=== PATIENT | female | born 1990 | race Caucasian/White ===

== ENCOUNTER 2016-07-08 19:23 | Inpatient (IN) | payer OTHER ==
[2016-07-08] MEDS ORDERED: fentaNYL* 50 MCG/ML 2 ML VIAL (100 MCG VIAL) ONE (20:03)
[2016-07-08] MEDS ORDERED: OBEPIDURAL* 250 ML ONE (20:03)
[2016-07-08 20:22] LABS: Hematocrit 38 % (35-47); Hemoglobin 12.7 g/dl (12.0-16.0); Mean Corpuscular HGB Conc 34 g/dl (31-36); Mean Corpuscular Hemoglobin 31 pg (27-31); Mean Corpuscular Volume 91 fL (80-97); Mean Platelet Volume 10 um3 (7.4-10.4); Red Blood Count 4.15 10^6/ul (4.0-5.4); Red Cell Distribution Width 12 % (10.5-15); White Blood Count 12.5 10^3/ul (3.5-10.8)
[2016-07-08] MEDS ORDERED: Phenylephrine IV* 40 MCG/ML 10 ML SYRINGE IV PUSH PRN ×2 (21:04)
[2016-07-08] MEDS ORDERED: Famotidine TAB* 20 MG PO PRN (21:04)
[2016-07-08] MEDS ORDERED: Sodium Citrate/Citric Acid* 15 ML UDC PO PRN (21:04)
[2016-07-08] MEDS ORDERED: OBEPIDURAL* 250 ML EPIDURAL SCH (22:00)
[2016-07-08] MEDS ORDERED: Oxytocin in LR* 20 UNITS/1,000 ML BAG IVPB ONE (23:49)
[2016-07-09] MEDS ORDERED: Witch Hazel PAD* JAR TOPICAL PRN (00:05)
[2016-07-09] MEDS ORDERED: Dibucaine 1% 28.35 GM TUBE PR PRN (00:05)
[2016-07-09] MEDS ORDERED: oxyCODONE/Acetamin 5/325 MG* TAB PO PRN (00:05)
[2016-07-09] MEDS ORDERED: Glycerin ADULT SUPP PR PRN (00:05)
[2016-07-09] MEDS ORDERED: Acetaminophen TAB* 325 MG PO PRN (00:05)
[2016-07-09] MEDS ORDERED: Ibuprofen TAB* 600 MG PO PRN (00:05)
[2016-07-09] MEDS ORDERED: Oxytocin in LR* 20 UNITS/1,000 ML BAG IVPB SCH (01:00)
[2016-07-09] MEDS ORDERED: Sertraline* 100 MG TAB PO SCH (09:00)
[2016-07-09] MEDS: Docusate CAP* 100 MG PO SCH ×4 (10:00→20:33)
[2016-07-09] MEDS: Sertraline* 50 MG TAB PO SCH (10:00)
[2016-07-10 08:37] LABS: Hematocrit 37 % (35-47); Hemoglobin 12.4 g/dl (12.0-16.0); Mean Corpuscular HGB Conc 34 g/dl (31-36); Mean Corpuscular Hemoglobin 31 pg (27-31); Mean Corpuscular Volume 92 fL (80-97); Mean Platelet Volume 10 um3 (7.4-10.4); Red Blood Count 3.96 10^6/ul (4.0-5.4); Red Cell Distribution Width 13 % (10.5-15); White Blood Count 10.9 10^3/ul (3.5-10.8)
[2016-07-10] MEDS ORDERED: Ferrous Gluconate TAB* 324 MG TAB PO SCH (09:00)
[2016-07-10] MEDS: Docusate CAP* 100 MG PO SCH ×3 (09:03→20:38)
[2016-07-10] MEDS: Sertraline* 50 MG TAB PO SCH (09:03)
[2016-07-11 04:59] VITALS: BP 119/73
== END 2016-07-10 20:40 | disposition home or self-care (01) | DRG 775 ==
LOC: MCHOBOUT 19:23 → MCHOB 19:59
PROVIDERS: ADMIT Midwife; ATTEND Midwife
PROC: 10E0XZZ Delivery of Products of Conception, External Approach (ICD-10-PCS; principal; 2016-07-08)
PROC: 0HQ9XZZ Repair Perineum Skin, External Approach (ICD-10-PCS; 2016-07-08)
DX: O60.14X0 Preterm labor third trimester with preterm delivery third trimester, not applicable or unspecified (principal); O99.344 Other mental disorders complicating childbirth; F41.8 Other specified anxiety disorders; O70.0 First degree perineal laceration during delivery; Z3A.37 37 weeks gestation of pregnancy; Z37.0 Single live birth
CPT/HCPCS: 36415; 85027; 86850; 86900; 86901; A9270-GY; J3010